=== PATIENT | male | born 1975 ===

== ENCOUNTER 2016-09-23 08:15 | Outpatient (RCR) | payer OTHER | END 2016-11-18 20:27 | disposition home or self-care (01) | LOC: WSPT | DX: M50.10 Cervical disc disorder with radiculopathy, unspecified cervical region (principal); M51.36 Other intervertebral disc degeneration, lumbar region; Z90.49 Acquired absence of other specified parts of digestive tract; Z98.1 Arthrodesis status | CPT/HCPCS: G8984-GP; G8985-GP ==